=== PATIENT | female | born 1995 | race Caucasian/White ===

== ENCOUNTER 2017-11-27 23:32 | Emergency (ER) | payer OTHER ==
[2017-11-28] MEDS: METOCLOPRAMIDE INJ 10MG/2ML VIAL (J2765) IV
[2017-11-28] MEDS: NS 1,000 ML IV
[2017-11-28 00:25] LABS: CONTROL LINE HCG INT CTR LINE PRESENT; HCG, SERUM QUALITATIVE NEGATIVE (NEGATIVE)
[2017-11-28 00:31] LABS: BASO % 0.2 % (0.0-1.0); EOS # 0.1 10^3/uL (0.0-0.50); EOS % 0.5 % (0.0-3.0); HEMATOCRIT 35.9 % (36.0-47.0); HEMOGLOBIN 11.8 g/dl (12.0-15.5); IMMATURE GRANULOCYTE % 0.6 % (0-3.0); LYMPH # 3.3 10^3/uL (1.5-6.5); LYMPH % 25.7 % (24.0-44.0); MEAN CORPUSCULAR HEMOGLOBIN 26.5 pg (27.0-33.0); MEAN CORPUSCULAR HGB CONC 32.9 g/dl (32.0-36.5); MEAN CORPUSCULAR VOLUME 80.7 fl (80.0-96.0); MONO # 0.5 10^3/uL (0.0-0.8); MONO % 4.1 % (0.0-5.0); NEUTROPHILS # 8.8 10^3/uL (1.8-7.7); NEUTROPHILS % 68.9 % (36.0-66.0); PLATELET COUNT, AUTOMATED 252 10^3/uL (150-450); RED BLOOD COUNT 4.45 10^6/uL (4.00-5.40); RED CELL DISTRIBUTION WIDTH 14.3 % (11.5-14.5); WHITE BLOOD COUNT 12.8 10^3/uL (4.0-10.0)
[2017-11-28 00:32] LABS: ALBUMIN 3.3 GM/DL (3.2-5.2); ALBUMIN/GLOBULIN RATIO 0.73 (1.00-1.93); ALKALINE PHOSPHATASE 87 U/L (45-117); ALT/SGPT 62 U/L (12-78); AMYLASE 53 U/L (25-115); ANION GAP 9 MEQ/L (8-16); AST/SGOT 34 U/L (7-37); BILIRUBIN,DIRECT < 0.1 MG/DL (0.0-0.2); BILIRUBIN,TOTAL 0.2 MG/DL (0.2-1.0); BLOOD UREA NITROGEN 11 MG/DL (7-18); CALCIUM LEVEL 8.5 MG/DL (8.5-10.1); CARBON DIOXIDE LEVEL 27 MEQ/L (21-32); CHLORIDE LEVEL 103 MEQ/L (98-107); CREATININE FOR GFR 0.76 MG/DL (0.55-1.30); GLUCOSE, FASTING 115 MG/DL (70-100); LIPASE 110 U/L (73-393); POTASSIUM SERUM 3.9 MEQ/L (3.5-5.1); SODIUM LEVEL 139 MEQ/L (136-145); TOTAL PROTEIN 7.8 GM/DL (6.4-8.2)
[2017-11-28 00:38] LABS: AMORPHOUS SEDIMENT RFX SMALL (NEGATIVE); KETONE, URINE AUTO RFX NEGATIVE (NEGATIVE); LEUKOCYTE ESTERASE UR AUTO RFX 3+ (NEGATIVE); MUCUS, URINE RFX SMALL (NEGATIVE); NITRITE, URINE AUTO RFX NEGATIVE (NEGATIVE); RBC, URINE AUTO RFX 4 /HPF (0-3); SPECIFIC GRAVITY UR AUTO RFX 1.028 (1.002-1.035); SQUAM EPITHELIAL CELL UR AURFX 5 /HPF (0-6); WBC, URINE AUTO RFX 9 /HPF (0-3)
[2017-11-28] MEDS: ONDANSETRON 4 MG ORAL DISINTEGRATING TAB (Q0162 PER 1MG) PO (01:00)
== END 2017-11-28 01:13 | disposition home or self-care (01) ==
LOC: M ED 23:32
DX: K59.00 Constipation, unspecified (principal); R11.10 Vomiting, unspecified; F17.200 Nicotine dependence, unspecified, uncomplicated; Z79.899 Other long term (current) drug therapy
CPT/HCPCS: Q0162